=== PATIENT | female | born 1975 | race Caucasian/White ===

== ENCOUNTER → 2016-09-13 | Outpatient (CLI) | payer BC ==
[~2016-09-13] MED LIST: ALBU1AER9 INH; ASMIN/60 INH; ETONMIS VAGRING; SERT50TA PO
--- NOTE | 2016-09-13 15:37 | MAMMOGRAPHY REPORT ---
BILATERAL DIGITAL SCREENING MAMMOGRAM TOMOSYNTHESIS WITH CAD: 09/13/2016 CLINICAL HISTORY: Routine screening. Patient has no complaints. TECHNIQUE: Breast tomosynthesis in addition to standard 2D mammography was performed. Current study was also evaluated with a Computer Aided Detection (CAD) system. COMPARISON: Comparison is made to exams dated: 09/10/2015 mammogram and 09/08/2014 mammogram - [facility]. BREAST COMPOSITION: The tissue of both breasts is almost entirely fatty. FINDINGS: No suspicious masses, calcifications, or areas of architectural distortion are noted in ei ther breast. There has been no significant interval change compared to prior exams. IMPRESSION: ACR BI-RADS CATEGORY 1: NEGATIVE There is no mammographic evidence of malignancy. A 1 year screening mammogram is recommended. The pa tient will receive written notification of the results. Approximately 10% of breast cancers are not detected with mammography. A negative mammographic report should not delay biopsy if a clinically suggestive mass is present. Leilani Lucio M.D. ah/:09/13/2016 12:33:50 Dockmaster: Tammi SHIPLEY(Lissa)(M), [facility] letter sent: Normal 1/2 BI-RADS Code: ACR BI-RADS Category 1: Negative
== END | disposition home or self-care (01) ==
LOC: C.MAMM 11:38
PROVIDERS: ATTEND Obstetrics & Gynecology
DX: Z12.31 Encounter for screening mammogram for malignant neoplasm of breast (principal)

== ENCOUNTER → 2016-11-23 | Outpatient (CLI) | payer BC | END | disposition home or self-care (01) | LOC: C.PAPS 17:01 | PROVIDERS: ATTEND Obstetrics & Gynecology | DX: Z01.419 Encounter for gynecological examination (general) (routine) without abnormal findings (principal) ==

== ENCOUNTER → 2016-11-29 | Outpatient (CLI) | payer BC ==
--- NOTE | 2016-11-29 15:30 | MAMMOGRAPHY REPORT ---
UNILATERAL LEFT DIGITAL DIAGNOSTIC MAMMOGRAM TOMOSYNTHESIS WITH CAD AND TARGETED LEFT ULTRASOUND: 11/04 CLINICAL HISTORY: The patient reports a palpable lump in her left axillary region for approximately o ne month. She has had similar lumps in both axillary regions in the past, and whitish material has b een expressed from prior right axillary lumps. TECHNIQUE: Breast tomosynthesis in addition to standard 2D mammography was performed. Current study was also evaluated with a Computer Aided Detection (CAD) system. Left CC and MLO 2-D and tomosynthes is images were obtained. COMPARISON: Comparison is made to exams dated: 09/13/2016 mammogram, 09/10/2015 mammogram, and 09/08/2014 mammogram - [facility]. BREAST COMPOSITION: The tissue of the left breast is almost entirely fatty. FINDINGS: A triangle marker site of the palpable lump in the high left axillary region. The area of the palpable lump is too far superior to include on the mammogram. However, there are no suspicious masses, calcifications, or areas of architectural distortion noted within the left breast. There fenton s been no significant interval change mammographically compared to prior exams. Targeted ultrasound was performed of the area of the palpable lump pointed out by the patient, in the high left axillary region. Clinical exam shows purplish discoloration of the skin at the site of th e palpable lump. At the site of the palpable lump there is an elongated intradermal hypoechoic cysti c-appearing 2.0 x 0.2 x 0.9 cm mass. An adjacent smaller hypoechoic intradermal mass is also seen wh ich measures 7 x 5 cm. Given the intradermal location, the masses are benign and compatible with rodolfo aceous/epidermal inclusion cysts. IMPRESSION: ACR BI-RADS CATEGORY 2: BENIGN, TARGETED ULTRASOUND ACR BI-RADS CATEGORY 2: BENIGN Two intradermal hypoechoic masses at the site of the palpable left axillary lump, the largest measuri ng 2.0 x 0.2 cm. Findings are benign and compatible with sebaceous/epidermal inclusion cysts. There is no mammographic or targeted sonographic evidence of malignancy. Recommend clinical follow-up for the left axillary lump, and recommend routine bilateral screening mammograms which are due September 2017 . The patient has been verbally notified of the results. Approximately 10% of breast cancers are not detected with mammography. A negative mammographic report should not delay biopsy if a clinically suggestive mass is present. Leilani Lucio M.D. ah/:11/29/2016 14:44:01 Dice Table Person: Debbie ALVARES)(Sandie), [facility] letter sent: Normal 1/2 BI-RADS Code: ACR BI-RADS Category 2: Benign Ultrasound BI-RADS: ACR BI-RADS Category 2: Benign
== END | disposition home or self-care (01) ==
LOC: C.MAMM 14:16
PROVIDERS: ATTEND Obstetrics & Gynecology
DX: R22.2 Localized swelling, mass and lump, trunk (principal)